=== PATIENT | male | born 1980 | race Caucasian/White ===

== ENCOUNTER 2017-08-12 16:25 | Emergency (ER) | payer SELFPAY ==
[~2017-08-12] VITALS: Ht 182.8 cm; Wt 77.1 kg
[~2017-08-12 16:25] MED LIST: AMOXICILLIN500 M2 PO; BACTRIM DS 8001 TA1 PO; IBU-8800 MG PO; KEFLEX500 MG PO; MOTRIN400 MG PO; NAPROSYN500 MG PO; PERCOCET 325 MG1 TA2 PO; ULTRAM50 MG PO; VICODIN 5/500 505 MG PO
== END 2017-08-12 16:45 | disposition home or self-care (01) ==
LOC: ED 16:25
DX: S51.802A Unspecified open wound of left forearm, initial encounter (principal); L08.9 Local infection of the skin and subcutaneous tissue, unspecified; R03.0 Elevated blood-pressure reading, without diagnosis of hypertension; X58.XXXA Exposure to other specified factors, initial encounter; Y93.89 Activity, other specified; Y92.89 Other specified places as the place of occurrence of the external cause; Y99.8 Other external cause status

== ENCOUNTER → 2017-09-15 | Outpatient (CLI) | payer SELFPAY | END | disposition home or self-care (01) | LOC: RESCLI 04:34 | DX: R21 Rash and other nonspecific skin eruption (principal); F12.10 Cannabis abuse, uncomplicated; F17.200 Nicotine dependence, unspecified, uncomplicated; Z71.6 Tobacco abuse counseling; Z76.89 Persons encountering health services in other specified circumstances ==

== ENCOUNTER → 2018-04-06 | Outpatient (CLI) | payer OTHER | END | disposition home or self-care (01) | LOC: WOUNDCARE 01:27 | DX: L97.821 Non-pressure chronic ulcer of other part of left lower leg limited to breakdown of skin (principal); L98.491 Non-pressure chronic ulcer of skin of other sites limited to breakdown of skin; R59.0 Localized enlarged lymph nodes; F17.290 Nicotine dependence, other tobacco product, uncomplicated; F12.90 Cannabis use, unspecified, uncomplicated ==

== ENCOUNTER 2022-04-08 00:21 | Emergency (ER) | payer MEDICAID ==
[~2022-04-08] VITALS: Ht 185.4 cm; Wt 81.6 kg
[2022-04-08] MEDS ORDERED: CEPHALEXIN500 M1 PO (01:01)
== END 2022-04-08 01:06 | disposition home or self-care (01) ==
LOC: ED 00:21
DX: S61.411A Laceration without foreign body of right hand, initial encounter (principal); W45.8XXA Other foreign body or object entering through skin, initial encounter; Y93.89 Activity, other specified; Y92.89 Other specified places as the place of occurrence of the external cause; Y99.8 Other external cause status

== ENCOUNTER 2022-07-15 01:18 | Emergency (ER) | payer MEDICAID ==
[~2022-07-15] VITALS: Ht 172.7 cm; Wt 77.1 kg
[~2022-07-15 01:18] MED LIST changes: +CEPHALEXIN500 M1 PO
[2022-07-15 04:13] LABS: BASO # 0.1 10*3/uL (0.0-0.1); BASO % 0.4 % (0.0-1.0); EOS % 0.1 % (1.0-4.0); HEMATOCRIT 46.9 % (42.0-52.0); LYMPH # 1.3 10*3/uL (1.3-4.4); LYMPH % 6.5 % (27.0-41.0); MEAN CELL VOLUME 91.2 fl (80.0-94.0); MEAN CORPUSCULAR HGB 31.9 pg (27.0-31.0); MEAN PLATELET VOLUME 9.5 fl (9.6-12.3); MONO # 0.9 10*3/uL (0.1-1.0); MONO % 4.7 % (3.0-9.0); NEUT # 17.1 10*3/uL (2.3-7.9); NEUT % 87.9 % (47.0-73.0); PLATELET COUNT AUTOMATED 331 10*3/uL (130-400); RED BLOOD COUNT 5.14 10*6/uL (4.50-5.90); RED CELL DISTRI WIDTH 12.9 % (0-14.5); WHITE BLOOD COUNT 19.4 10*3/uL (4.8-10.8)
[2022-07-15 04:36] LABS: ALKALINE PHOSPHATASE 118 U/L (46-116); BUN 13 mg/dl (9-23); CHLORIDE 106 mmol/L (98-107); POTASSIUM 3.5 mmol/L (3.4-5.1); SGPT/ALT 26 U/L (10-49); TOTAL PROTEIN 7.3 gm/dL (6.0-8.0)
== END 2022-07-15 06:59 | disposition short-term general hospital (02) ==
LOC: ED 01:18
PROVIDERS: Emergency Medicine
DX: S02.85XA Fracture of orbit, unspecified, initial encounter for closed fracture (principal); S05.12XA Contusion of eyeball and orbital tissues, left eye, initial encounter; W22.8XXA Striking against or struck by other objects, initial encounter; Y93.89 Activity, other specified; Y92.89 Other specified places as the place of occurrence of the external cause; Y99.8 Other external cause status

== ENCOUNTER 2022-07-27 14:53 | Emergency (ER) | payer MEDICAID ==
[~2022-07-27] VITALS: Ht 182.8 cm; Wt 70.3 kg
[2022-07-27 15:58] LABS: BASO # 0.1 10*3/uL (0.0-0.1); EOS # 0.3 10*3/uL (0.0-0.4); EOS % 3.4 % (1.0-4.0); HEMATOCRIT 45.6 % (42.0-52.0); LYMPH # 3.2 10*3/uL (1.3-4.4); LYMPH % 34.1 % (27.0-41.0); MEAN CELL VOLUME 93.4 fl (80.0-94.0); MEAN CORPUSCULAR HGB 31.1 pg (27.0-31.0); MEAN CORPUSCULAR HGB CONC 33.3 g/dl (33.0-37.0); MEAN PLATELET VOLUME 8.9 fl (9.6-12.3); MONO # 0.8 10*3/uL (0.1-1.0); MONO % 8.8 % (3.0-9.0); NEUT % 52.3 % (47.0-73.0); PLATELET COUNT AUTOMATED 357 10*3/uL (130-400); RED BLOOD COUNT 4.88 10*6/uL (4.50-5.90); RED CELL DISTRI WIDTH 13.1 % (0-14.5); WHITE BLOOD COUNT 9.5 10*3/uL (4.8-10.8)
[2022-07-27 16:10] LABS: ACT PARTIAL THROMBO TIME 27.1 SECONDS (20.0-32.1)
[2022-07-27 16:46] LABS: ALKALINE PHOSPHATASE 128 U/L (46-116); BUN 8 mg/dl (9-23); CHLORIDE 104 mmol/L (98-107); CPK 165 U/L (34-171); ETHYL ALCOHOL 3.4 mg/dl (<3); POTASSIUM 3.9 mmol/L (3.4-5.1); SGPT/ALT 34 U/L (10-49); TOTAL PROTEIN 6.5 gm/dL (6.0-8.0)
== END 2022-07-27 17:15 | disposition home or self-care (01) ==
LOC: ED 14:53
PROVIDERS: Emergency Medicine
DX: Z04.6 Encounter for general psychiatric examination, requested by authority (principal); F19.10 Other psychoactive substance abuse, uncomplicated

== ENCOUNTER 2023-04-07 15:34 | Emergency (ER) | payer MEDICAID ==
[~2023-04-07] VITALS: Wt 74.8 kg
[2023-04-07] MEDS ORDERED: Ketorolac Tromethamine 60 MG/2 ML VIAL IM ONE (16:25)
== END 2023-04-07 16:40 ==
LOC: ED 15:34
DX: S99.911A Unspecified injury of right ankle, initial encounter (principal); K02.9 Dental caries, unspecified; V86.56XA Driver of dirt bike or motor/cross bike injured in nontraffic accident, initial encounter; Y93.55 Activity, bike riding; Y92.488 Other paved roadways as the place of occurrence of the external cause; Y99.8 Other external cause status

== ENCOUNTER 2023-04-14 00:55 | Emergency (ER) | payer MEDICAID ==
[2023-04-14] MEDS ORDERED: AZITHROMYCIN 250 MG TAB PO ONE (01:05)
[2023-04-14 01:51] LABS: BILIRUBIN Negative (Negative); BLOOD Negative (Negative); CLARITY Clear (Clear); COLOR Yellow (Yellow); GLUCOSE Negative (Negative); KETONE Negative (Negative); LEUKO ESTERASE Negative (Negative); NITRITE Negative (Negative); UROBILINOGEN 0.2 E.U./dl (0.0-1.0)
[2023-04-14] MEDS ORDERED: CEPHALEXIN500 M1 PO (03:18)
[2023-04-14] MEDS ORDERED: Dextromethorphan Hydrobromid 1 TAB TAB PO ONE (03:20)
== END 2023-04-14 03:35 | disposition home or self-care (01) ==
LOC: ED 00:55
PROVIDERS: Internal Medicine
DX: S70.211A Abrasion, right hip, initial encounter (principal); V89.9XXA Person injured in unspecified vehicle accident, initial encounter; Y93.89 Activity, other specified; Y92.410 Unspecified street and highway as the place of occurrence of the external cause; Y99.8 Other external cause status

== ENCOUNTER 2023-05-23 09:28 | Emergency (ER) | payer MEDICAID ==
[~2023-05-23] VITALS: Ht 195.5 cm; Wt 70.3 kg
[2023-05-23] MEDS ORDERED: Ketorolac Tromethamine 60 MG/2 ML VIAL IM ONE (10:25)
== END 2023-05-23 10:32 ==
LOC: ED 09:28
DX: R07.81 Pleurodynia (principal); M54.2 Cervicalgia; F17.200 Nicotine dependence, unspecified, uncomplicated; Z79.2 Long term (current) use of antibiotics

== ENCOUNTER 2023-06-07 20:36 | Emergency (ER) | payer MEDICAID ==
[~2023-06-07] VITALS: Ht 182.8 cm; Wt 70.3 kg
[2023-06-07 20:53] LABS: BASO # 0.1 10*3/uL (0.0-0.1); BASO % 0.6 % (0.0-1.0); EOS # 0.2 10*3/uL (0.0-0.4); EOS % 1.1 % (1.0-4.0); HEMATOCRIT 43.6 % (42.0-52.0); LYMPH # 1.5 10*3/uL (1.3-4.4); LYMPH % 10.7 % (27.0-41.0); MEAN CELL VOLUME 94.2 fl (80.0-94.0); MEAN CORPUSCULAR HGB 31.1 pg (27.0-31.0); MEAN PLATELET VOLUME 9.4 fl (9.6-12.3); MONO % 7.4 % (3.0-9.0); NEUT # 11.1 10*3/uL (2.3-7.9); NEUT % 79.9 % (47.0-73.0); PLATELET COUNT AUTOMATED 319 10*3/uL (130-400); RED BLOOD COUNT 4.63 10*6/uL (4.50-5.90); RED CELL DISTRI WIDTH 12.9 % (0-14.5); WHITE BLOOD COUNT 13.9 10*3/uL (4.8-10.8)
[2023-06-07 21:12] LABS: BUN 17 mg/dl (9-23); CHLORIDE 108 mmol/L (98-107); POTASSIUM 3.8 mmol/L (3.4-5.1)
[2023-06-07] MEDS ORDERED: Ondansetron Hydrochloride 4 MG TAB SL ONE (23:45)
[2023-06-07] MEDS ORDERED: Sulfamethoxazole/Trimethopri 1 TAB TAB PO ONE (23:45)
[2023-06-07] MEDS ORDERED: Acetaminophen/Hydrocodone 5 MG/325 MG TABLET PO ONE (23:45)
[2023-06-07] MEDS ORDERED: SEPTDS PO (23:48)
== END 2023-06-08 | disposition home or self-care (01) ==
LOC: ED 20:36
PROVIDERS: Internal Medicine
DX: L03.011 Cellulitis of right finger (principal); D72.829 Elevated white blood cell count, unspecified; Z59.00 Homelessness unspecified

== ENCOUNTER 2023-07-16 22:59 | Emergency (ER) | payer MEDICAID ==
[~2023-07-16] VITALS: Ht 182.8 cm; Wt 61.4 kg
[~2023-07-16 22:59] MED LIST changes: +SEPTDS PO
[2023-07-16 23:21] LABS: BASO # 0.1 10*3/uL (0.0-0.1); BASO % 1.4 % (0.0-1.0); EOS # 0.2 10*3/uL (0.0-0.4); EOS % 2.5 % (1.0-4.0); HEMATOCRIT 46.3 % (42.0-52.0); LYMPH # 2.7 10*3/uL (1.3-4.4); LYMPH % 36.4 % (27.0-41.0); MEAN CELL VOLUME 94.7 fl (80.0-94.0); MEAN CORPUSCULAR HGB 31.5 pg (27.0-31.0); MEAN CORPUSCULAR HGB CONC 33.3 g/dl (33.0-37.0); MEAN PLATELET VOLUME 9.4 fl (9.6-12.3); MONO # 0.6 10*3/uL (0.1-1.0); MONO % 8.3 % (3.0-9.0); NEUT # 3.8 10*3/uL (2.3-7.9); NEUT % 51.3 % (47.0-73.0); PLATELET COUNT AUTOMATED 354 10*3/uL (130-400); RED BLOOD COUNT 4.89 10*6/uL (4.50-5.90); RED CELL DISTRI WIDTH 12.9 % (0-14.5); WHITE BLOOD COUNT 7.3 10*3/uL (4.8-10.8)
[2023-07-16 23:40] LABS: ALKALINE PHOSPHATASE 118 U/L (46-116); BUN 17 mg/dl (9-23); CHLORIDE 103 mmol/L (98-107); POTASSIUM 3.5 mmol/L (3.4-5.1); SGPT/ALT 21 U/L (5-49); TOTAL PROTEIN 7.2 gm/dL (6.0-8.0)
== END 2023-07-17 00:02 ==
LOC: ED 22:59
PROVIDERS: Internal Medicine
DX: Z04.6 Encounter for general psychiatric examination, requested by authority (principal); Z59.00 Homelessness unspecified

== ENCOUNTER 2023-12-03 21:33 | Emergency (ER) | payer MEDICAID ==
[~2023-12-03] VITALS: Ht 576.5 cm
[2023-12-03] MEDS ORDERED: Tetracaine Hydrochloride 0.5% 4 ML BOT OPH ONE (22:15)
[2023-12-03] MEDS ORDERED: FLUORESCEIN SODIUM 1 MG STRIP OPH ONE (22:15)
[2023-12-03] MEDS ORDERED: ERYTHROMYCIN OPH1 GM OU (22:33)
[2023-12-03] MEDS ORDERED: ERYTHROMYCIN 1 GM TUBE OPH ONE (22:35)
== END 2023-12-03 22:45 | disposition home or self-care (01) ==
LOC: ED 21:33
DX: S05.02XA Injury of conjunctiva and corneal abrasion without foreign body, left eye, initial encounter (principal); H16.131 Photokeratitis, right eye; W89.8XXA Exposure to other man-made visible and ultraviolet light, initial encounter; Y93.89 Activity, other specified; Y92.89 Other specified places as the place of occurrence of the external cause; Y99.8 Other external cause status; Z59.00 Homelessness unspecified